=== PATIENT | male | born 1975 | race Caucasian/White ===

== ENCOUNTER 2018-11-21 21:32 | Observation (INO) ==
[2018-11-21] MEDS: NITROGLYCERIN SL PRN (22:12)
[2018-11-21 22:19] LABS: BASO# 0.04 X1000 (0.0-0.2); BASO% 0.5 % (0.0-0.8); EOS# 0.24 X1000 (0.0-0.7); EOS% 3.1 % (0.0-10.0); HEMATOCRIT 52.2 % (42.0-52.0); IMM GRAN# 0.02 X1000 (0.0-0.04); IMM GRAN% 0.3 % (0.0-0.5); LYMPH# 1.82 X1000 (1.2-3.4); LYMPH% 23.3 % (20.5-51.1); MCH 30.6 PG (27-31); MCHC 34.5 g/dL (33-37); MCV 88.6 FL (81-99); MONO# 0.75 X1000 (0.11-0.59); MONO% 9.6 % (1.7-9.3); MPV 9.1 FL (7.4-10.4); NEUT# 4.94 X1000 (1.4-6.5); NEUT% 63.2 % (42.2-75.2); PLT 293 X1000 (130-400); RBC 5.89 XMIL (4.7-6.1); RDW 14.8 % (11.5-14.5); WBC 7.81 X1000 (4.8-10.8)
--- NOTE | 2018-11-21 22:22 | EKG Report ---
Test Performed on : 11/21/2018 9:39:50 PM Test Reason : chest pain Blood Pressure : / mmHG Vent. Rate : 084 BPM Atrial Rate : 084 BPM P-R Int : 136 ms QRS Dur : 082 ms QT Int : 330 ms P-R-T Axes : 063 037 030 degrees QTc Int : 389 ms Normal sinus rhythm. Cannot rule out Anterior infarct , age undetermined Abnormal ECG No previous ECGs available Unconfirmed Result
--- NOTE | 2018-11-21 22:25 | Diag Imaging Result Doc PS360 ---
CHEST-PORTABLE - 11/21/2018 INDICATION: chest pain COMPARISON: None FINDINGS: The lungs are normally expanded and clear. Heart size and mediastinal contours are normal. No pneumothorax or pleural effusion. IMPRESSION: Negative exam. Electronically signed by Amado Hussein 11/21/2018 10:23 PM
[2018-11-21 22:31] LABS: AGAP 10; ALB/GLOB RATIO 1.6; ALBUMIN 4.3 g/dL (3.5-5.0); ALKALINE PHOSPHATASE 69 U/L (32-122); AMYLASE 85 U/L (20-200); BUN 13 mg/dL (8-22); CHLORIDE 102 mmol/L (98-107); COSMO 274; ESTIMATED GFR > 60; GLUCOSE 95 mg/dL (70-104); GOT 27 U/L (10-34); GPT 36 U/L (10-44); LIPASE 70 U/L (13-60); POTASSIUM 4.3 mmol/L (3.5-5.1); SODIUM 137 mmol/L (136-145); TCO2 25 mmol/L (25-35); TOTAL BILIRUBIN 0.59 mg/dL (0.20-1.00)
[2018-11-21 22:51] LABS: CK INDEX 0.6 (0.0-2.5); CK-MB 1.69 ng/mL (0.0-5.0)
[2018-11-21] MEDS ORDERED: NITROGLYCERIN TOP ONE (23:03)
--- NOTE | 2018-11-21 23:03 | PROVIDER DOCUMENTATION ---
This chart was entered by Keyana Gimenez Scribe, acting as scribe for Gudelia Bains MD. HPI-Chest Pain - General Chief Complaint: Chest Pain Stated Complaint: CHEST PAIN Time Seen by Provider: 11/21/18 21:48 Source: patient Allergies/Adverse Reactions: Patient Allergies Allergy/AdvReac Type Severity Reaction Status Date / Time No Known Allergies Allergy Verified 11/21/18 21:44 Home Medications: Home Medication List Medication Instructions Recorded Confirmed Last Taken Type Pantoprazole [Protonix] 40 mg PO DAILY@0700 #30 tab 11/22/18 Unknown Rx Sumatriptan [Imitrex] 50 mg PO PRN PRN 11/22/18 11/22/18 Unknown History Trazodone [Desyrel] 50 mg PO QHS 11/22/18 11/22/18 Unknown History Vortioxetine Hydrobromide 20 mg PO QHS 11/22/18 11/22/18 Unknown History [Trintellix] - History of Present Illness-CP Nature of Presenting Problem: pt is a 43 yr old male presenting with complaint of left chest pain radiating to left neck, left arm onset at 1130 this AM, pt admits nausea and shortness of breath. pain 8/10. pt admits intermittent palpitations and dizziness. pt denies personal cardiac hx but reports strong family hx. pt also reports recent hx of intermittent CP but has not been seen for same. Location: reports: substernal Chest Pain Radiation: reports: arms (left), neck Quality of Pain: reports: tightness Severity in ED: severe (8/10) Onset/Duration: this morning (1130) Timing: still present Context/Activities at Onset: reports: light activity Modifying Factors: improves with: nothing Associated Symptoms: reports: nausea, shortness of breath, vomiting. denies: dizziness Nitro Today/Relief: no nitro taken today Aspirin Treatment Today: 325 mg x 1, provided at home Prior Chest Pain/Cardiac Workup: reports: no prior cardiac workup. denies: no prior chest pain (recewnt intermittent CP, no workup) Similar Symptoms Previously?: Yes Recently Seen Here or By Another Healthcare Provider: No Review of Systems - Adult - REVIEW OF SYSTEMS - ADULT Constitutional: denies: fever, fatique Eyes: denies: blurred vision, double vision Ears, Nose, Mouth & Throat: reports: no symptoms reported Cardiovascular: reports: chest pain, palpitations. denies: syncope Respiratory: reports: shortness of breath. denies: cough Gastrointestinal: reports: nausea, vomiting. denies: abdominal pain Genitourinary: reports: no symptoms reported Musculoskeletal: reports: no symptoms reported Integumentary: reports: no symptoms reported Neurological: reports: dizziness/vertigo. denies: headache/migraines, syncope Psychiatric: reports: no symptoms reported Endocrine: reports: no symptoms reported Hematologic/Lymphatic: reports: no symptoms reported Allergic/Immunologic: reports: no symptoms reported All Other Systems: Reviewed and Negative Past History - Adult - PAST MEDICAL HISTORY-ADULT Review of Records: reports: Nursing Assessment Review, Medications Reviewed, Social history reviewed & non-contributory. Major Childhood Illnesses: reports: denies history Cardiovascular: reports: denies history Respiratory: reports: denies history Gastrointestinal: reports: denies history Obstetrical/Gynecological: reports: denies history Genitourinary: reports: denies history Musculoskeletal: reports: denies history Neurological: reports: denies history Endocrine/Immune: reports: denies history Other Conditions: reports: denies history - IMMUNIZATION STATUS Childhood Immunizations: See Nurse Assessment Flu Vaccine: See Nurse Assessment - FAMILY HISTORY Family History: reviewed, not pertinent - SOCIAL HISTORY Smoking: denies Substance Use: alcohol Alcohol Use Frequency: occasionally Living Situation: family Physical Exam-General - PHYSICAL EXAM-ADULT Initial Vital Signs Reviewed: Yes - CONSTITUTIONAL General Appearance: alert, no apparent distress, anxious - EYES Eyes: PERRL/EOMI - HEAD, EARS, NOSE, MOUTH & THROAT HENMT: normocephalic/atraumatic, moist mucous membranes - NECK Neck: non-tender, full range of motion, supple, normal inspection - RESPIRATORY Respiratory: chest non-tender, lungs clear, normal breath sounds, no pleuratic chest pain, no respiratory distress, no accessory muscle use - CARDIOVASCULAR Cardiovascular: normal peripheral pulses, regular rate, rhythm, no edema - GASTROINTESTINAL (ABDOMEN) Abdominal Exam: normal bowel sounds, non tender, soft - LYMPHATIC Lymphatic: no adenopathy - MUSCULOSKELETAL Back Exam: normal inspection, no CVA tenderness, no vertebral tenderness Extremity: normal range of motion, non-tender, normal gait, normal inspection - SKIN Integumentary: normal color, normal turgor, warm/dry - NEUROLOGIC Neurologic: grossly normal, no motor/sensory deficits - PSYCHIATRIC Psych/Mental Status: normal mood/affect Progress - PLAN OF CARE/RESULTS Progress/Plan/Lab Results: Orders Category Date Time Status Admit - [facility] Routine AdmDCTranf 11/22/18 00:56 Active Cardiac Monitoring DIRECTED Care 11/21/18 21:54 Completed If abnormal EKG, order: NOW Care 11/21/18 21:45 Completed Notify MD if DIRECTED Care 11/22/18 00:56 Active Nursing- MD Consult Request 0800 Care 11/22/18 00:58 Completed Saline Loc DIRECTED Care 11/22/18 00:56 Completed Vital Signs Order Q 4-HR ASSESS Care 11/22/18 00:56 Active Z-Document. for Tele Applied ORDERED Care 11/22/18 00:57 Completed Physician/Provider Consults Routine Cons 11/22/18 00:56 Ordered NPO Diet 11/22/18 00:57 Completed CHEST-PORTABLE [RAD] Stat Exams 11/21/18 21:50 Completed CTA [CT ANGIOGRAM THORAX] [CT] Stat Exams 11/22/18 00:55 Completed ABG [RESP] Routine Lab 11/22/18 03:30 Completed AMYLASE [CHEM] Stat Lab 11/21/18 21:44 Completed BASIC METABOLIC PANEL [CHEM] Routine Lab 11/22/18 04:59 Completed CBC WITH ELECTRONIC DIFF [HEME] Stat Lab 11/21/18 21:44 Completed CK PROFILE [SP CHEM] Stat Lab 11/21/18 21:45 Completed CMP [COMPREHENSIVE METABOLIC PANEL] [CHEM] Stat Lab 11/21/18 21:44 Completed LIPASE [CHEM] Stat Lab 11/21/18 21:44 Completed PRO B-NATRIURETIC PEPTIDE Routine Lab 11/22/18 04:59 Completed PROTIME WITH INR [COAG] Routine Lab 11/22/18 04:59 Completed TROPONIN T Lab 11/22/18 11:11 Completed TROPONIN T Lab 11/22/18 15:07 Completed TROPONIN T Stat Lab 11/21/18 21:45 Completed TROPONIN T Stat Lab 11/21/18 23:33 Completed 0.9% Sodium Chloride Inj [Ns] 1,000 ml Med 11/22/18 01:15 Discontinued IV 75 mls/hr Acetaminophen [Tylenol] Med 11/22/18 00:56 Discontinued 650 mg PO Q6H PRN PRN Aspirin Med 11/22/18 09:00 Discontinued 325 mg PO DAILY Nitroglycerin Med 11/21/18 23:03 Discontinued 1 inch TOP NOW ONE Nitroglycerin Sl [Nitroglycerin] Med 11/21/18 22:05 Discontinued 0.4 mg SL Q5M PRN PRN Nitroglycerin Sl [Nitroglycerin] Med 11/22/18 00:56 Discontinued 0.4 mg SL Q5M PRN PRN Omeprazole [Prilosec] Med 11/22/18 07:00 Discontinued 20 mg PO DAILY@0700 Ondansetron [Zofran] Med 11/22/18 00:56 Discontinued 4 mg IV Q4H PRN PRN Trazodone [Desyrel] Med 11/22/18 02:00 Discontinued 50 mg PO QHS Vortioxetine Hydrobromide [Trintellix] Med 11/22/18 02:00 Discontinued 20 mg PO QHS CP/Palp <45 No Known Cardiac Hx Stat Oth 11/21/18 21:44 Ordered Oxygen Device Routine Oth 11/22/18 00:56 Completed Telemetry [OM.EQ] Routine Oth 11/22/18 00:56 Active EKG [EKG] Routine Ther 11/22/18 07:00 Completed EKG [EKG] Stat Ther 11/21/18 21:45 Draft EKG [EKG] Stat Ther 11/22/18 00:20 Draft Echo Spec/Color Doppler Routine Ther 11/22/18 07:00 Completed Transfer/Admit Order [TRANSFER] Routine Transfer 11/22/18 01:03 Completed Result Diagrams: 11/21/18 21:44 11/22/18 04:59 - REASSESSMENT Reassessment #1 Time Reassessed: 23:02 (nitro helped briefly but pain is back up to 8/10) Status: improving Reassessment #2 Time Reassessed: 00:32 (Patient states his pain is back to 8/10 despite the topical NTG ointment. HE prefers to be admitted.) Status: unchanged - EKG 1 Time of EKG reading by physician:: 21:40 EKG Read and Signed by:: Gudelia Bains EKG Interpretation (*Must complete 3 of following elements*): Abnormal (can not rule out anterior infarct, age undetermined) Rate: 84 Rhythm: nsr [place]: normal QRS: normal [place] Interval: normal 2 Time of EKG reading by physician:: 23:28 EKG Read and Signed by:: Gudelia Bains EKG Interpretation (*Must complete 3 of following elements*): Normal Rate: 76 Rhythm: nsr [place]: normal QRS: normal [place] Interval: normal ST Wave: normal - XRAY 1 XRAY Study: Chest Impression: Normal (Signed CHEST-PORTABLE - 11/21/2018 INDICATION: chest pain COMPARISON: None FINDINGS: The lungs are normally expanded and clear. Heart size and mediastinal contours are normal. No pneumothorax or pleural effusion. IMPRESSION: Negative exam. Electronically signed by Amado Hussein 11/21/2018 10:23 PM 11/21/182222 Interpreting Physician: Amado Hussein MD Dictated Date/Time: 11/21/182222 cc: Gudelia Bains MD; Gildardo Greenwood MD) - CONSULTS/PCP/HOSPITALIST Notification #1 *Consult/PCP/Hospitalist*: Dr Valenzuela Time Discussed: 00:35 Reason/Comments: discussed plan of care for pt admit Consult Disposition: Will see in ED Departure - Departure Date of Disposition Decision: 11/20/18 Time of Disposition Decision: 23:00 DIAGNOSIS: Chest pain Disposition: ADMITTED INPATIENT 09 Certified Medical Emergency: Emergent Condition: Fair - Critical Care Note This patient required my direct & personal management of CC.: No Attestation - Physician/ HUMBERTO Attestation Patient care was provided by Advanced Practice Provider:: No The physician spent face to face time with patient:: No Advanced Practice Provider documentation review:: Supervising physician onsite and consulted in the evaluation and care of this patient. The physician did not have a face to face encounter with the patient. This chart was documented by the indicated scribe, (Keyana Gimenez Scribe) and accurately reflects the services I performed and decisions made by me, Gudelia Bains MD, as attested by the provider's signature.
--- NOTE | 2018-11-22 00:23 | EKG Report ---
Test Performed on : 11/21/2018 11:28:49 PM Test Reason : chest pain Blood Pressure : / mmHG Vent. Rate : 076 BPM Atrial Rate : 076 BPM P-R Int : 138 ms QRS Dur : 080 ms QT Int : 354 ms P-R-T Axes : 050 -08 020 degrees QTc Int : 398 ms Normal sinus rhythm. Normal ECG When compared with ECG of 21-NOV-2018 21:39, (Unconfirmed) No significant change was found Unconfirmed Result
[2018-11-22] MEDS ORDERED: TYLENOL PO PRN (00:56)
[2018-11-22] MEDS ORDERED: ZOFRAN IV PRN (00:56)
[2018-11-22] MEDS ORDERED: NITROGLYCERIN SL PRN (00:56)
[2018-11-22] MEDS ORDERED: NS 1,000 ML IV SCH (01:15)
[2018-11-22] MEDS ORDERED: MORPHINE IV PRN (01:16)
[2018-11-22] MEDS ORDERED: TRINTELLIX PO SCH (02:00)
[2018-11-22] MEDS ORDERED: DESYREL PO SCH (02:00)
[2018-11-22] MEDS: NITROGLYCERIN SL PRN (02:15)
[2018-11-22] MEDS ORDERED: MORPHINE IV ONE (02:43)
[2018-11-22 03:47] LABS: ALLEN TEST YES; BE 1.9 mmoll (-3.0-3.0); BLOOD TYPE ARTERIAL; HCO3-(ACT) 26.4 mmoll (20.0-26.0); METHB 0.9 % (0.0-1.5); O2(CT) 23.9 mL/dL (15.0-23.0); PCO2(98.6) 44 mmHg (35-45); PO2(98.6) 127 mmHg (60-100); SAMPLE BLOOD; SAO2 98.9 % (95.0-100.0); THB 17.4 g/dL (11.5-17.4)
[2018-11-22 03:48] LABS: MODALITY CANNULA
--- NOTE | 2018-11-22 04:49 | HISTORY AND PHYSICAL ---
PRIMARY CARE PHYSICIAN: Dr. Gildardo Greenwood. PRESENTING COMPLAINT: Chest pain. HISTORY OF PRESENTING COMPLAINT: Mr. James is a 43-year-old female with no apparent past significant medical history, who came to the emergency department because of ongoing chest pain for the past 1 month, which usually is associated with some form of exertion. However, yesterday Mr. Raza was sitting down in his truck and then he started having this excruciating retrosternal chest pain radiating to the left side of the neck and making his left arm numb. This was associated with some nauseation and sensation of feeling generalized weakness. He came to the emergency department. He said nitro paste did relieve the pain somehow, but then he had about 3 episodes of a similar pain while in the emergency room. Upon presentation, Mr. James had a blood pressure of 156/109. PAST MEDICAL HISTORY: None. PAST SURGICAL HISTORY: Unrelated. ALLERGIES: None. FAMILY HISTORY: Positive for myocardial infarction on both sides. According to Mr. James, the mother had her first attack at the age of 40. SOCIAL HISTORY: He denies any active smoking. However, he dips tobacco. He occasionally drinks alcohol, but denies any illicit drug use. Mr. James is very athletic. REVIEW OF SYSTEMS: A 14 point review of system conducted with Mr. James. Unremarkable except what we have in the HPI. However, Mr. James also refers that any time he had the chest pain he also gets some shortness of breath. Upon presenting to the emergency room, his current vitals show blood pressure is currently 128/82, pulse of 82, respirations 22, and temperature is 98.3 degrees. Patient is saturating about 92% on room air. General: Mr. James is a 43-year-old, well-built gentleman with a BMI of 36.4. He is in bed in no distress. HEENT: Mucosa is pink and moist. Anicteric. Acyanotic. Neck: Neck is supple. Lungs: Chest good air entry bilaterally. There were no crepitations. No rhonchi. There is no accessory muscle use. Cardiovascular: Regular rate and rhythm. No murmurs. No rubs. No gallops. GI: Abdomen is soft and nontender. Bowel sounds present. There is no hepatosplenomegaly. Inguinal regions are unremarkable. Lymphatic: No lymph nodes. Extremities: No pedal edema. Distal pulses present. FRUIT PACKER: Patient is awake, alert, and oriented x4. Motor is 5/5 in all extremities. Sensation is intact. Cranial nerves 2-12 have been grossly examined and unremarkable. LABORATORY DATA: Hemoglobin is 18. Chemistry is completely unremarkable. Creatinine is normal. Troponin's have been done twice, and is normal. EKG shows normal sinus rhythm. No ST-segment or T-waves abnormalities. A chest x-ray was unremarkable. ASSESSMENT: 1. Atypical chest pain. The patient does have significant family history of coronary artery disease. The chest pain does have some characteristics that is concerning for coronary arthrosclerosis. So far, troponin's have been negative and EKGs are unremarkable for acute coronary syndrome, by it is very possible Mr. James has an underlying coronary arteriosclerosis. We are going to admit him for coronary workup. 2. Erythrocytosis could be reactive or it could be as a result of hemoconcentration. We are going to hydrate Mr. James overnight, and recheck on his numbers. We will also do an ABG. 3. Situational anxiety with depression. Patient is on trazodone and Trintellix. This will be restarted. We will withhold sumatriptan for the headache because of the ongoing intermittent chest pain which it could be also vasospasm induced by the sumatriptan. cc: Shine Dwyer MD [facility], [place]
[2018-11-22 05:41] LABS: INR 1.01; PROTIME 13.4 Seconds (11.0-16.0)
[2018-11-22 06:00] LABS: AGAP 9; BUN 12 mg/dL (8-22); CHLORIDE 101 mmol/L (98-107); COSMO 277; CREATININE 1.2 mg/dL (0.7-1.2); ESTIMATED GFR > 60; GLUCOSE 86 mg/dL (70-104); POTASSIUM 4.4 mmol/L (3.5-5.1); SODIUM 139 mmol/L (136-145); TCO2 29 mmol/L (25-35)
--- NOTE | 2018-11-22 06:53 | EKG Report ---
Test Performed on : 11/22/2018 06:32:04 AM Test Reason : chest pain Blood Pressure : / mmHG Vent. Rate : 076 BPM Atrial Rate : 076 BPM P-R Int : 130 ms QRS Dur : 094 ms QT Int : 362 ms P-R-T Axes : 072 088 028 degrees QTc Int : 407 ms Normal sinus rhythm. Normal ECG When compared with ECG of 21-NOV-2018 23:28, (Unconfirmed) Questionable change in QRS axis Confirmed by Dionne Wilson MD ([id number]) on 11/22/2018 7:50:20 AM
[2018-11-22] MEDS ORDERED: PRILOSEC PO SCH (07:00)
--- NOTE | 2018-11-22 07:13 | Diag Imaging Result Doc PS360 ---
EXAM: CT ANGIOGRAM THORAX 11/22/2018 HISTORY: chest pain/ hypertension TECHNIQUE: This exam was performed using automated exposure control, adjustment of mA or kV according to patient size, and/or use of iterative reconstruction technique. COMMENT: 3-D MIPS were performed. There are no previous studies available for comparison. There are no filling defects in the pulmonary arteries. The aorta is not distended and there is no evidence of dissection. There is some hypertrophy of the left ventricle. There are no abnormal fluid collections. There is a 3 to 4 mm sized nodule in the lateral left lower lobe on image 84. The regional skeleton is intact. IMPRESSION: No evidence of acute disease. No evidence of pulmonary emboli. Electronically signed by Agusto King 11/22/2018 7:11 AM
[2018-11-22] MEDS ORDERED: ASPIRIN PO SCH (09:00)
--- NOTE | 2018-11-22 13:11 | CARDIOLOGY CONSULTATION ---
DATE: 11/22/2018 CONSULTATION REQUESTED BY: The hospitalist service. PRIMARY DOCTOR: Dr. Gildardo Greenwood. REASON FOR CONSULTATION: Chest pain. HISTORY: Mr. James states that for the past 3 or 4 weeks he has been experiencing increasing fatigue and tiredness. Lately he has been having intermittent chest discomfort. This does not appear to be worsened by exercise. However, it is really moderately intense, seems to radiate to shoulders, feels like a tightness in the chest. He has had radiation of the pain to the neck, some nausea, and he said that at times he has noted his heart going fast when exercising moderately. Yesterday, the discomfort developed around noontime and he decided to come to the emergency room seeking evaluation. He was seen at 9:45 p.m. in the ER. They did a chest x-ray that shows no acute abnormalities. A CT scan of the chest showed no evidence of acute disease. No pulmonary emboli. EKG was normal. Troponin levels have been checked 3 times; they are negative. ProBNP was very low. The patient has been admitted for further evaluation and management. PAST HISTORY: Really negative. PAST SURGICAL HISTORY: Also negative. SOCIAL HISTORY: He is . He has 2 children. He works as a self-employed air conditioning sales and service technician. He is very active. He uses smokeless tobacco. He uses no drugs. He does not take any prescription medicine. FAMILY HISTORY: Mother had myocardial infarction in her mid 40s. Father also had myocardial infarction at a young age. He has 2 half siblings, who do not have any heart condition. MEDICATIONS LISTED: Included Trintellix and trazodone and Imitrex as needed. REVIEW OF SYSTEMS: Really noncontributory. Multiple systems were checked. There is some anxiety, insomnia, and migraines in the past. PHYSICAL EXAMINATION: Vital signs: Blood pressure is 141/90, temperature 98 degrees, pulse 76, respirations 16. General: The patient is awake, alert, oriented, in no distress. HEENT: Unremarkable. Chest: Clear to auscultation and percussion. Heart: Sounds are regular and rhythmic. No gallop or murmur. Abdomen: Soft, nontender. No masses. No hepatomegaly. Extremities: Show good pulses. No peripheral edema. Neurologic: Nonfocal. Moves 4 extremities. BLOOD WORK: His sodium, potassium, BUN and creatinine are normal. Liver function tests are normal. Lipase was slightly elevated. IMPRESSION: 1. Patient who presents with recurrent chest discomfort. Has been creeping up on him for the past 3 or 4 weeks. This could represent coronary heart disease. The only abnormal blood test really on him is the lipase which is 70 units, normally it is up to 60. 2. The liver function tests otherwise are normal. 3. Chest CT did not describe any obvious abnormality in the abdominal area, although the slices did not focus particularly in the pancreatic duodenal segment. 4. His esophagus on the thoracic views did not appear to be thickened or abnormal. 5. Strong family history of coronary heart disease. 6. Question of hypertension. 7. Tobacco use. RECOMMENDATION: At this time we will review the echocardiogram and the stress test that has been done today. Further advice will be forthcoming. I would suggest to consider doing an ultrasound of the abdomen to check the pancreas and the liver, as well as the gallbladder Lipase elevation is kind of worrisome.A reasonable explanation for that finding must be sought. consider GI opinion. cc: Deepak Naik MD MTDD
[2018-11-22 13:34] VITALS: BP 145/89
[2018-11-22] MEDS ORDERED: PROTONIX PO ONE (13:40)
--- NOTE | 2018-11-22 14:15 | ECHO REPORT ---
ORDER DATE: 11/22/2018 INDICATION: Chest pain. FINDINGS: 1. The right atrium appears normal in size. 2. Mild tricuspid regurgitation. The RV systolic pressure is 22. 3. Normal RV size and systolic function. 4. Mild pulmonic insufficiency. 5. Normal left atrial size with a dimension of 3.6 cm. Volume index 23. 6. No mitral valve prolapse. Mild mitral regurgitation. No evidence of mitral stenosis. 7. Normal LV size, end-diastolic dimension of 5.1. Normal wall thicknesses with a posterior and interventricular septal wall thickness of 0.9 and 1.1 cm respectively. Normal LV systolic function. Estimated EF of 55% with normal wall motion. 8. Aortic valve opens well. No evidence of stenosis or insufficiency. The valve is trileaflet. 9. Aorta appears normal in visualized segments. 10. No pericardial effusion seen. cc: MD Shine Womack MD
--- NOTE | 2018-11-22 14:23 | Diag Imaging Result Document ---
PROCEDURE NAME: MYOCARDIAL PERF SCAN, STR/REST - 11/22/2018 This is a 43-year-old male. STUDY: Rest/stress treadmill exercise myocardial perfusion study. REQUESTING DOCTOR: Hospitalist. REASON: Chest pain. DESCRIPTION: The patient came into the nuclear laboratory, received a resting injection of technetium 99 sestamibi 14.5 mCi. Multiple tomographic views of the heart were obtained at rest. Subsequently, the patient underwent treadmill exercise protocol and at peak infusion injected with technetium 99 sestamibi 42.9 mCi. Multiple tomographic views of the cardiac structures were obtained following the completion of the protocol. SUMMARY OF THE ELECTROCARDIOGRAPHIC PORTION OF THE STUDY: Resting ECG shows sinus rhythm, rate is 86 beats per minute. Resting blood pressure 160/98. Resting ECG looks basically normal. The patient walked on the treadmill for 10 minutes and 21 seconds. He completed 3 stages of Valdo protocol, walked for 1 minute and 21 seconds into the 4th stage achieving a maximum heart rate of 162 beats per minute representing 91% of maximum predicted heart rate for his age. Peak blood pressure 187/96. At peak exercise, ECG shows sinus tachycardia without any significant ischemic ST-T changes. The patient reported no chest pain, shortness of breath, or palpitations. The test was terminated due to fatigue and achievement of adequate heart rate. He was injected with radiotracer 1 minute prior to termination of exercise. Following the completion of the test, the heart rate and blood pressure returned to back to baseline. No arrhythmias were noted. The patient reported no symptoms other than mild dyspnea during exercise. His exercise capacity is decreased by 5%. His level of stress based on double product of peak systolic blood pressure times peak heart rate is very good at 30,294. SUMMARY OF THE MYOCARDIAL PERFUSION PORTION OF THE STUDY: Poststress tomographic views of the left ventricle showed normal homogeneous distribution of radiotracer throughout the entire left ventricular myocardium. No convincing evidence of any postexercise defect. The rest images showed normal perfusion. Polar plots revealed the same. No definite convincing evidence of any inducible ischemia nor myocardial scar. Gated SPECT shows normal left ventricular systolic function. Ejection fraction estimated of 60% with normal ventricular volumes. The lung/heart ratio is normal. TID is also normal. SUMMARY: This study shows: 1. Normal electrocardiographic response to exercise. The patient achieved adequate levels of heart rate stress and blood pressure, 91% maximum predicted heart rate for his age was achieved. Workload is 12.3 METS. Exercise capacity decreased only 5%. 2. Normal poststress myocardial perfusion scan. There is no convincing scintigraphic evidence of pharmacologically-induced myocardial ischemia. 3. Normal left ventricular systolic function, ejection fraction is estimated at 60% with normal ventricular volumes, no wall motion abnormality. This study represents low risk for ischemic events. cc: MD Shine Alvarez MD
--- NOTE | 2018-11-22 18:54 | DISCHARGE SUMMARY ---
ADMISSION DATE: 11/22/2018 DISCHARGE DATE: DISCHARGE DIAGNOSES: 1. Atypical chest pain. 2. Epigastric pain. HISTORY: The patient was admitted for observation. He has no medical history, possibly some early hypertension. He has had chest pain which is atypical. He has a family history of CAD. In any case, patient had mild elevation in his lipase, but workup in the ER was negative. His tests which include an echo EF is 55% and normal. No wall motion abnormalities. Myocardial perfusion scan was also normal. There was no myocardial ischemia. EF was normal. No wall motion abnormality. The test was felt to be negative. The patient did describe some atypical chest pain, but again felt to be noncardiac. His lipase was mildly elevated with a normal amylase, and his lipase was about 10 points above 60; that's not even twice normal which can be elevated for other reasons. His liver enzymes were normal. In any case, we pursued an ultrasound, but they could not complete it the day of discharge. I felt it was going to be low yield, and we set it up as an outpatient. We set him up for GI. Discussed with Dr. Wang. His preference was that since this was atypical that EGD could be pursued as an outpatient. We will discharge him, and have him follow up with an ultrasound and EGD as an outpatient in the next couple of days. I did initiate Protonix on him, and maintain his trazodone 50, vortioxetine 20, and Imitrex as needed. Discharge condition is stable. TIME SPENT: 32 minute discharge. cc: MD Gildardo Kent MD Alexis R. Penot, MD
[2018-11-23] MEDS ORDERED: PROTONIX PO SCH (07:00)
== END 2018-11-22 18:50 | disposition home or self-care (01) ==
LOC: ED 21:32 → INTOOBSV 21:33 → 3S 11-22 01:14 → SUATTDRO 11-22 01:14
PROVIDERS: ATTEND Internal Medicine